=== PATIENT | female | born 1985 ===

== ENCOUNTER 2025-08-14 09:28 | Outpatient (OUT) | payer BC, SELFPAY ==
--- NOTE | 2025-08-14 | XR_ITS ---
[facility] [place] [id number] Patient Name: JARAD CRESPO MRN: [id number] date: 1985 Sex: F Assigned Patient Location: [facility] Current Patient Location: [facility] Accession/Order Number: [id number] Exam Date: 08/14/2025 10:13 Report Date: 08/14/2025 10:15 At the request of: ODALYS GEIGER DO Procedure: XR ankle LT min 3V LEFT ANKLE - 3 views CLINICAL DATA: Chronic posterior left ankle pain with recent worsening. COMPARISON: None Standing AP, lateral and oblique views were obtained. There is no evidence of fracture or dislocation. The talar dome is intact. There is a posterior calcaneal spur. No focal soft tissue swelling is seen. XR/XR ankle LT min 3V IMPRESSION: POSTERIOR CALCANEAL SPUR. NO ACUTE BONY FINDINGS. Impression dictated by: Soniya Larson M.D. 08/14/2025 10:15 AM Dictation Location: [place] [address] Electronically authenticated by: [id number] Date: 08/14/2025 10:15
== END 2025-08-14 09:29 | disposition home or self-care (01) ==
LOC: RAD 09:28
PROVIDERS: Visit Provider Orthopaedic Surgery Orthopaedic Trauma
DX: M76.62 Achilles tendinitis, left leg (principal); M77.32 Calcaneal spur, left foot
CPT/HCPCS: 73610